=== PATIENT | male | born 1965 | race Two or more races ===

== ENCOUNTER 2019-11-06 12:18 | Inpatient (IN) | payer OTHER ==
--- NOTE | 2019-11-06 12:47 | BHS.RME ---
Substance Use & Tx History - Substance Use History Alcohol Substance amount: 5-6 fifths of vodka Frequency of use: Daily Substance route: Oral Date of Last Use: 11/06/19 (started age 13) Marijuana/Hashish Substance amount: 1 ounce Frequency of use: Daily Substance route: Smoking Date of Last Use: 11/06/19 (started age 6) Nicotine Substance amount: former stopped 20 years ago Physical/Psych/Mental Status - Behavior General Behavior: Increased activity (restlessness, agitation) Eye Contact: Normal - Cooperativeness Cooperativeness: Cooperative - Thinking Thought Processes: Tight, Logical, Goal Directed - Physical Health Problems Is patient presently having any pain?: No Does patient presently have any injuries (include location): No Does patient currently have a fever: No Is patient : No CIWA Nausea/Vomitin Muscle Tremors: 5 Anxiety: 3 Agitation: 3 Paroxysmal Sweats: 4-Forehead w/Sweat Beads Orientation: 1-Uncertain about Date Tacttile Disturbances: 3-Moderate Itch/Numb/Burn Auditory Disturbances: 0-None Visual Disturbances: 0-None Headache: 2-Mild CIWA-Ar Total Score: 24
[2019-11-06 13:25] VITALS: BMI 24.0
--- NOTE | 2019-11-06 13:28 | HP ---
CIWA Score Nausea/Vomitin Muscle Tremors: 5 Anxiety: 3 Agitation: 3 Paroxysmal Sweats: 4-Forehead w/Sweat Beads Orientation: 1-Uncertain about Date Tacttile Disturbances: 3-Moderate Itch/Numb/Burn Auditory Disturbances: 0-None Visual Disturbances: 0-None Headache: 2-Mild CIWA-Ar Total Score: 24 - Admission Criteria OASAS Guidelines: Admission for Medically Managed Detox: Requires at least one of the followin. CIWA greater than 12 2. Seizures within the past 24 hours 3. Delirium tremens within the past 24 hours 4. Hallucinations within the past 24 hours 5. Acute intervention needed for co occurring medical disorder 6. Acute intervention needed for co occurring psychiatric disorder 7. Severe withdrawal that cannot be handled at a lower level of care (continued vomiting, continued diarrhea, abnormal vital signs) requiring intravenous medication and/or fluids 8. Admitting History and Physical - Admission Chief Complaint: Pt is a 54 yo M presenting for alcohol detox; "detox from alcohol." History of Present Illness: Pt is a 54 yo M presenting for alcohol detox; "detox from alcohol." First time at [facility]. Last time at detox was 10 years ago. Pt reports possible intermittent periods of sobriety but no significant periods of time. Pt reports that certain stressful interpersonal relationships are trigger for his alcohol use. Pt has several medical comorbidities and in active withdrawal (experiencing diaphoresis, itching, and restlessness). Walks with a cane at home. PMH - asthma, T2DM, HIV (viral load undetectable, CD4 cannot recall - per pt; last month), Psoriasis, Seizures (pt reports having a "seizure" yesterday on the street), s/p CVA in 2019 (pt reports residual L sided weakness) PSH - s/p brain surgery - hematoma (s/p surgery 11/2018); orthopedic surgery L arm (when he was 17 yo) Psych - none, feeling "down and depressed" - Soc/Domiciled - Live in the [place] apt with his Legal - none - Substance Use History Alcohol Substance amount: 5-6 fifths of vodka Frequency of use: Daily Substance route: Oral Date of Last Use: 11/06/19 (started age 13) Marijuana/Hashish Substance amount: 1 ounce Frequency of use: Daily Substance route: Smoking Date of Last Use: 11/06/19 (started age 6) Nicotine Substance amount: former stopped 20 years ago History Source: Patient Limitations to Obtaining History: No Limitations Admission ROS S - HPI Exam Limitations: No Limitations - Ebola screening Have you traveled outside of the country in the last 21 days: No Have you been sick,other than usual withdrawal symptoms: No Do you have a fever: No - Review of Systems Constitutional: Chills, Diaphoresis, Weakness (residual L sided weakness s/p CVA in 2019) EENT: reports: Blurred Vision (pt reports blurry vision chronically and wears glasses (not sure if nearsighted/farsighted)), Hearing Loss (chronic gradually bilateral hearing loss x 4 years), Nose Congestion Respiratory: reports: Shortness of Breath (mild SOB - pt reports it's from his asthma; not significantly above baseline) Cardiac: reports: No Symptoms Reported GI: reports: Abd. Pain w/ defecation (intermittent pain with defecation), Blood Streaked Bowels, Diarrhea (watery diarrhea x 2 days), Nausea, Abdominal cramping Musculoskeletal: reports: Muscle Pain (diffuse muscle aches) Integumentary: reports: Rash (chronic all over extremities from psoriasis) Neuro: reports: Headache (mild), Seizure (seizure in the street), Tremors (bilateral UE, observed), Unsteady Gait (2/2 to CVA in 2019) Endocrine: reports: No Symptoms Reported Psychiatric: reports: Agitated, Anxious, Depressed Patient History - Smoking Cessation Smoking history: Former smoker Have you smoked in the past 12 months: No Initiated information on smoking cessation: No Admission Physical Exam [facility] - Vital Signs Vital Signs: Vital Signs - 24 hr 11/06/19 13:23 Temperature 97.7 F Pulse Rate 96 H Respiratory 18 Rate Blood Pressure 131/76 - Physical General Appearance: Yes: No Apparent Distress, Nourished, Appropriately Dressed, Tremorous, Irritable, Sweating, Anxious, Other (restless) HEENTM: Yes: EOMI, Hearing grossly Normal (with gradual bilateral hearing loss; able to hear appropriately during normal conversation), Normocephalic, Normal Voice, Nasal Congestion (mild) Respiratory: Yes: Lungs Clear, Normal Breath Sounds, No Respiratory Distress, No Accessory Muscle Use Neck: Yes: Supple, Trachea in good position Breast: Yes: Breast Exam Deferred Cardiology: Yes: Regular Rhythm, Regular Rate Abdominal: Yes: Normal Bowel Sounds, Non Tender, Flat, Soft Genitourinary: Yes: Other (deferred) Back: Yes: Normal Inspection Musculoskeletal: Yes: Muscle Pain (muscle aches), Other (gait unsteady after CVA in 2019; possible residual weakness of LLE) Extremities: Yes: Normal Inspection, Normal Range of Motion, Non-Tender, Tremors Neurological: Yes: Fully Oriented, Alert, Motor Strength 5/5 (except LLE - 4/5 strength on hip flexion, knee extension, plantarflexion, and dorsiflexion) Integumentary: Yes: Normal Color, Dry, Warm, Other (rash's in all extremities from psoriasis as well as excoriations from itching) - Diagnostic (1) Seizure Current Visit: Yes Status: Chronic (2) HIV (human immunodeficiency virus infection) Current Visit: Yes Status: Acute Qualifiers: HIV symptom status: asymptomatic Qualified Code(s): Z21 - Asymptomatic human immunodeficiency virus [HIV] infection status (3) Asthma Current Visit: Yes Status: Chronic Qualifiers: Asthma severity: mild Asthma persistence: intermittent Asthma complication type: uncomplicated Qualified Code(s): J45.20 - Mild intermittent asthma, uncomplicated (4) Type 2 diabetes mellitus Current Visit: Yes Status: Chronic Qualifiers: Diabetes mellitus penitentiary insulin use: without penitentiary use Diabetes mellitus complication status: without complication Qualified Code(s): E11.9 - Type 2 diabetes mellitus without complications (5) Psoriasis Current Visit: Yes Status: Chronic (6) Alcohol dependence with withdrawal, uncomplicated Current Visit: Yes Status: Acute Cleared for Admission S - Detox or Rehab [facility] Level of Care: Medically Managed Detox Regimen/Protocol: Librium Breathalyzer - Breathalyzer Breathalyzer: 0.077 Urine Drug Screen - Test Device Lot number: [id number] Expiration date: 05/15/21 - Control Is test valid?: Yes - Results Drug screen NEGATIVE: No Urine drug screen results: THC-Marijuana Inpatient Rehab Admission - Rehab Decision to Admit Inpatient rehab admission?: No
[2019-11-06] MEDS ORDERED: ONDANSETRON *ODT* 4 MG TABLET SL PRN (14:05)
[2019-11-06] MEDS ORDERED: NICOTINE POLACRILEX 2 MG GUM BUC PRN (14:05)
[2019-11-06] MEDS ORDERED: MAGNESIUM CITRATE 300 ML BOTTLE PO PRN (14:05)
[2019-11-06] MEDS ORDERED: ACETAMINOPHEN 325 MG TABLET (FP) PO PRN ×2 (14:05)
[2019-11-06] MEDS ORDERED: chlordiazePOXIDE HCL 25 MG CAPSULE PO ONE (14:05)
[2019-11-06] MEDS ORDERED: BISMUTH SUBSALICYLATE 262 MG/15 ML BTL PO PRN (14:05)
[2019-11-06] MEDS ORDERED: MENTHOL/PHENOL 1 EACH UD MM PRN (14:05)
[2019-11-06] MEDS ORDERED: IBUPROFEN 400 MG TABLET (FP) PO PRN (14:05)
[2019-11-06] MEDS ORDERED: METHOCARBAMOL 500 MG TABLET PO PRN (14:05)
[2019-11-06] MEDS ORDERED: chlordiazePOXIDE HCL 25 MG CAPSULE PO PRN (14:05)
[2019-11-06] MEDS ORDERED: MAGNESIUM HYDROX 2400MG/30ML ORAL SUSPENSION 30 ML CUP PO PRN (14:05)
[2019-11-06] MEDS ORDERED: MAG HYDROX/AL HYDROX/SIMETH 30 ML UNIT-DOSE CUP PO PRN (14:05)
[2019-11-06] MEDS ORDERED: chlordiazePOXIDE HCL 25 MG CAPSULE ONE (14:34)
[2019-11-06] MEDS ORDERED: MASKS NR ONE (16:25)
[2019-11-06 16:53] LABS: HEMATOCRIT 31.5 % (35.4-49); HEMOGLOBIN 10.7 GM/dL (11.7-16.9); MCH 35.4 pg (25.7-33.7); MCHC 33.8 g/dl (32.0-35.9); MEAN CELL VOLUME 104.8 fl (80-96); MEAN PLT VOLUME 6.9 fl (7.5-11.1); PLATELET COUNT 172 K/MM3 (134-434); RBC 3.01 M/mm3 (4.00-5.60); RDW 14.2 % (11.9-15.9); WHITE BLOOD COUNT 5.7 K/mm3 (4.0-10.0)
[2019-11-06 17:03] LABS: BILIRUBIN,TOTAL 0.4 mg/dL (0.2-1); CALCIUM 8.3 mg/dL (8.5-10.1); CREATININE 0.8 mg/dL (0.55-1.3); POTASSIUM 3.8 mmol/L (3.5-5.1); TOT PROT 11.3 g/dl (6.4-8.2)
[2019-11-06] MEDS: chlordiazePOXIDE HCL 25 MG CAPSULE PO SCH ×2 (18:19→22:46)
[2019-11-06] MEDS: hydrOXYzine PAMOATE 25 MG CAPSULE (FP) PO SCH ×2 (18:19→22:46)
[2019-11-06] MEDS: MELATONIN 5 MG TABLETS PO SCH (22:46)
[2019-11-06] MEDS: levETIRAcetam 500 MG TABLET (FP) PO SCH (22:46)
[2019-11-06] MEDS: THIAMINE HCL 100 MG TABLET (FP) PO SCH (22:46)
[2019-11-07] MEDS ORDERED: metFORMIN HCL 500 MG TABLET (FP) PO SCH (07:00)
[2019-11-07] MEDS: chlordiazePOXIDE HCL 25 MG CAPSULE PO SCH ×4 (07:08→22:57)
[2019-11-07] MEDS: hydrOXYzine PAMOATE 25 MG CAPSULE (FP) PO SCH ×5 (07:08→22:56)
[2019-11-07] MEDS: metFORMIN HCL 500 MG TABLET (FP) PO SCH (07:08)
[2019-11-07] MEDS ORDERED: TENOFOVIR ALAFENAMIDE FUMARATE 25 MG PO SCH (10:00)
[2019-11-07] MEDS ORDERED: PATIENT'S OWN MEDICATION (NON-FORMULARY) (Dolutegravir/Rilpivirine [Juluca 50-25 Mg Tablet PO SCH (10:00)
--- NOTE | 2019-11-07 10:13 | PN ---
Teaching Attending Note Name of Resident: Jamison Bradshaw ATTENDING PHYSICIAN STATEMENT I saw and evaluated the patient. I reviewed the resident's note and discussed the case with the resident. I agree with the resident's findings and plan as documented. SUBJECTIVE: OBJECTIVE: ASSESSMENT AND PLAN: 1. Alcohol use disorder, withdrawal Plan 1. Librium detox protocol
[2019-11-07] MEDS: RILPIVIRINE HCL 25 MG TABLET PO SCH (10:29)
[2019-11-07] MEDS: PRENATAL VITAMINS W/ FOLIC ACID TABLET (FP) PO SCH (10:29)
[2019-11-07] MEDS: levETIRAcetam 500 MG TABLET (FP) PO SCH ×2 (10:29→22:56)
[2019-11-07] MEDS: DOLUTEGRAVIR SODIUM 50 MG TABLET (NON-FORMULARY) PO SCH (10:30)
--- NOTE | 2019-11-07 10:58 | EKG ---
Test Reason : Blood Pressure : / mmHG Vent. Rate : 084 BPM Atrial Rate : 084 BPM P-R Int : 126 ms QRS Dur : 086 ms QT Int : 390 ms P-R-T Axes : 071 018 060 degrees QTc Int : 460 ms NORMAL SINUS RHYTHM NORMAL ECG NO PREVIOUS ECGS AVAILABLE Confirmed by MD Fallon, Mateo ([id number]) on 11/07/2019 10:57:57 AM Referred By: Confirmed By:Mateo Lehman MD
--- NOTE | 2019-11-07 11:46 | PN ---
[facility] CIWA - CIWA Score Nausea/Vomitin-Mild Nausea/No Vomiting Muscle Tremors: 2 Anxiety: 2 Agitation: 2 Paroxysmal Sweats: No Perspiration Orientation: 0-Oriented Tacttile Disturbances: 1-Very Mild Itch/Numbness Auditory Disturbances: 0-None Visual Disturbances: 0-None Headache: 1-Very Mild CIWA-Ar Total Score: 9 S Progress Note (SOAP) Subjective: alert,irritable,anxious,interrupted sleep,aching pain,aching pain,nausea Objective: 11/07/19 16:34 Vital Signs Temperature 97.0 F L 11/07/19 09:19 Pulse Rate 82 11/07/19 09:19 Respiratory Rate 16 11/07/19 09:19 Blood Pressure 114/68 11/07/19 09:19 O2 Sat by Pulse Oximetry (%) 96 11/07/19 09:19 11/07/19 16:34 Laboratory Last Values WBC 5.7 K/mm3 (4.0-10.0) 11/06/19 14:00 RBC 3.01 M/mm3 (4.00-5.60) L 11/06/19 14:00 Hgb 10.7 GM/dL (11.7-16.9) L 11/06/19 14:00 Hct 31.5 % (35.4-49) L 11/06/19 14:00 MCV 104.8 fl (80-96) H 11/06/19 14:00 MCH 35.4 pg (25.7-33.7) H 11/06/19 14:00 MCHC 33.8 g/dl (32.0-35.9) 11/06/19 14:00 RDW 14.2 % (11.9-15.9) 11/06/19 14:00 Plt Count 172 K/MM3 (134-434) 11/06/19 14:00 MPV 6.9 fl (7.5-11.1) L 11/06/19 14:00 Sodium 136 mmol/L (136-145) 11/06/19 14:00 Potassium 3.8 mmol/L (3.5-5.1) 11/06/19 14:00 Chloride 106 mmol/L (98-107) 11/06/19 14:00 Carbon Dioxide 27 mmol/L (21-32) 11/06/19 14:00 Anion Gap 4 MMOL/L (8-16) L 11/06/19 14:00 BUN 11.0 mg/dL (7-18) 11/06/19 14:00 Creatinine 0.8 mg/dL (0.55-1.3) 11/06/19 14:00 Est GFR (CKD-EPI)AfAm 116.56 11/06/19 14:00 Est GFR (CKD-EPI)NonAf 100.57 11/06/19 14:00 POC Glucometer 123 UNITS (80-120) 11/07/19 16:26 Random Glucose 87 mg/dL (74-106) 11/06/19 14:00 Calcium 8.3 mg/dL (8.5-10.1) L 11/06/19 14:00 Total Bilirubin 0.4 mg/dL (0.2-1) 11/06/19 14:00 AST 46 U/L (15-37) H 11/06/19 14:00 ALT 17 U/L (13-61) 11/06/19 14:00 Alkaline Phosphatase 153 U/L (45-117) H 11/06/19 14:00 Total Protein 11.3 g/dl (6.4-8.2) H 11/06/19 14:00 Albumin 3.0 g/dl (3.4-5.0) L 11/06/19 14:00 Syphilis Serology Non-reactive (NONREACTIVE) 11/06/19 14:00 Assessment: 11/07/19 16:35 withdrawal symptom Plan: continue detox librium regimen
[2019-11-07] MEDS ORDERED: FLU VACCINE (FLULAVAL) PF 60 MCG/0.5 ML SYRINGE 2020-2021 IM ONE (12:00)
[2019-11-07] MEDS ORDERED: BENZOCAINE 28 GM HEMORRHOIDAL OINTMENT PR PRN (17:38)
--- NOTE | 2019-11-07 17:38 | PN ---
S Progress Note Note: Pt states he has pain in his rectum and blood when he strains to go to the bathroom. Would like something for pain. Pt states he has an appointment on Tuesday to see PCP for evaluation of this- rectal pain with possible colonoscopy. Possible hemorrhoids- symptomatic relief needs evaluation- f/u PCP
--- NOTE | 2019-11-07 18:04 | CONSULT ---
[facility] Psychiatric Consult - Data Date of interview: 11/07/19 Admission source: [facility] Identifying data: First visit to [facility] and admission to [address] [place] [address] for this 54 y/o AA male self-referred for detoxification treatment. RASHID issue ; alcohol. Patient is , father of 17, domiciled, unemployed and supported on SSI/SSD benefits. Substance Abuse History: Discussed with the patient. RASHID profile as follows : Alcohol. Substance amount: 5-6 fifths of vodka. Frequency of use: Daily. Substance route: Oral. Date of Last Use: 11/06/19 (started age 13). Marijuana/Hashish. Substance amount: 1 ounce. Frequency of use: Daily. Substance route: Smoking. Date of Last Use: 11/06/19 (started age 6). Nicotine. Substance amount: former stopped 20 years ago. History Source: Patient. Limitations to Obtaining History: No Limitations. Medical History: Medical profile is remarkable for bronchial asthma, diabetes mellitus (type 2), HIV infection since 1977 (on ART medications), psoriasis, seizure disorder, antecedent of CVA with residual left-sided weakness (walks with /without cane), history of brain surgery (hematoma in 2019) and a distant background of orthosurgery for injury to left arm (age 17). Psychiatric History: Patient denies history of psychiatric hospitalizations, OPD care or suicide attempts. Physical/Sexual Abuse/Trauma History: Patient denies history of abuse. Additional Comment: Urine drug screen results: THC-Marijuana. Noted. Mental Status Exam - Mental Status Exam Alert and Oriented to: Time, Place, Person Cognitive Function: Good Patient Appearance: Unkempt, Disheveled Mood: Nervous, Withdrawn Affect: Mood Congruent, Constricted Patient Behavior: Fatigued, Appropriate, Cooperative Speech Pattern: Clear, Appropriate Voice Loudness: Normal Thought Process: Intact, Goal Oriented Thought Disorder: Not Present Hallucinations: Denies Suicidal Ideation: Denies Homicidal Ideation: Denies Insight/Judgement: Poor Sleep: Well Appetite: Fair Gait/Station: Other (slow gait) Psychiatric Findings - Problem List ([place] 1, 2,3) (1) Alcohol dependence with withdrawal, uncomplicated Current Visit: Yes Status: Acute - Initial Treatment Plan Initial Treatment Plan: Psychoeducation. Sleep hygiene. Detoxification in progress. Observation.
[2019-11-07] MEDS: THIAMINE HCL 100 MG TABLET (FP) PO SCH (22:56)
[2019-11-07] MEDS: MELATONIN 5 MG TABLETS PO SCH (22:56)
[2019-11-08] MEDS: metFORMIN HCL 500 MG TABLET (FP) PO SCH (06:39)
[2019-11-08] MEDS: chlordiazePOXIDE HCL 25 MG CAPSULE PO SCH ×2 (06:39→10:14)
[2019-11-08] MEDS: hydrOXYzine PAMOATE 25 MG CAPSULE (FP) PO SCH ×2 (06:40→10:14)
[2019-11-08 09:54] VITALS: BP 124/65; PULSE 83; TEMP 97.8
[2019-11-08] MEDS ORDERED: HYDROCORTISONE 2.5% TOPICAL CREAM 30 GM TUBE PR SCH (10:00)
[2019-11-08] MEDS: levETIRAcetam 500 MG TABLET (FP) PO SCH (10:10)
[2019-11-08] MEDS: RILPIVIRINE HCL 25 MG TABLET PO SCH (10:11)
[2019-11-08] MEDS: PRENATAL VITAMINS W/ FOLIC ACID TABLET (FP) PO SCH (10:12)
[2019-11-08] MEDS: DOLUTEGRAVIR SODIUM 50 MG TABLET (NON-FORMULARY) PO SCH (10:14)
--- NOTE | 2019-11-08 10:19 | PN ---
[facility] CIWA - CIWA Score Nausea/Vomitin-No Nausea/No Vomiting Muscle Tremors: None Anxiety: 1-Mildly Anxious Agitation: 0-Normal Activity Paroxysmal Sweats: No Perspiration Orientation: 0-Oriented Tacttile Disturbances: 0-None Auditory Disturbances: 0-None Visual Disturbances: 0-None Headache: 0-None Present CIWA-Ar Total Score: 1 S Progress Note (SOAP) Subjective: alert,no complaint Objective: 11/08/19 16:14 Vital Signs Temperature 97.8 F 11/08/19 08:52 Pulse Rate 83 11/08/19 08:52 Respiratory Rate 18 11/08/19 08:52 Blood Pressure 124/65 11/08/19 08:52 O2 Sat by Pulse Oximetry (%) 96 11/08/19 06:22 11/08/19 16:14 Laboratory Last Values WBC 5.7 K/mm3 (4.0-10.0) 11/06/19 14:00 RBC 3.01 M/mm3 (4.00-5.60) L 11/06/19 14:00 Hgb 10.7 GM/dL (11.7-16.9) L 11/06/19 14:00 Hct 31.5 % (35.4-49) L 11/06/19 14:00 MCV 104.8 fl (80-96) H 11/06/19 14:00 MCH 35.4 pg (25.7-33.7) H 11/06/19 14:00 MCHC 33.8 g/dl (32.0-35.9) 11/06/19 14:00 RDW 14.2 % (11.9-15.9) 11/06/19 14:00 Plt Count 172 K/MM3 (134-434) 11/06/19 14:00 MPV 6.9 fl (7.5-11.1) L 11/06/19 14:00 Sodium 136 mmol/L (136-145) 11/06/19 14:00 Potassium 3.8 mmol/L (3.5-5.1) 11/06/19 14:00 Chloride 106 mmol/L (98-107) 11/06/19 14:00 Carbon Dioxide 27 mmol/L (21-32) 11/06/19 14:00 Anion Gap 4 MMOL/L (8-16) L 11/06/19 14:00 BUN 11.0 mg/dL (7-18) 11/06/19 14:00 Creatinine 0.8 mg/dL (0.55-1.3) 11/06/19 14:00 Est GFR (CKD-EPI)AfAm 116.56 11/06/19 14:00 Est GFR (CKD-EPI)NonAf 100.57 11/06/19 14:00 POC Glucometer 124 UNITS (80-120) 11/08/19 06:48 Random Glucose 87 mg/dL (74-106) 11/06/19 14:00 Calcium 8.3 mg/dL (8.5-10.1) L 11/06/19 14:00 Total Bilirubin 0.4 mg/dL (0.2-1) 11/06/19 14:00 AST 46 U/L (15-37) H 11/06/19 14:00 ALT 17 U/L (13-61) 11/06/19 14:00 Alkaline Phosphatase 153 U/L (45-117) H 11/06/19 14:00 Total Protein 11.3 g/dl (6.4-8.2) H 11/06/19 14:00 Albumin 3.0 g/dl (3.4-5.0) L 11/06/19 14:00 Syphilis Serology Non-reactive (NONREACTIVE) 11/06/19 14:00 COVID-19 ([facility]) Not detected (Not Detected) 11/06/19 15:15 Assessment: 11/08/19 16:14 no withdrawal symptom Plan: stable for discharge today,follow up with medical provider on Tuesday11/12/19 as arrangement,after care follow up as arrangement by counselor
--- NOTE | 2019-11-08 10:19 | DS ---
[facility] Detox Discharge Summary Admission Date: 11/06/19 Discharge Date: 11/08/19 - History Additional Comments: alert,oriented x 3 ambulation on the unit with cane lung clear on auscultation bilaterally abdomen soft,no pain,no tenderness no edema of legs no withdrawal symptom stable for discharge today, follow up with after care program as arrangement and medical provider on Tuesday11/12/19 total time of discharge spendinr 35 minutes lef the unit in stable condition has all medications Pertinent Past History: hiv asthma type dm psoriasis seizure - Physical Exam Results Vital Signs: Vital Signs Temperature 97.8 F 11/08/19 08:52 Pulse Rate 83 11/08/19 08:52 Respiratory Rate 18 11/08/19 08:52 Blood Pressure 124/65 11/08/19 08:52 O2 Sat by Pulse Oximetry (%) 96 11/08/19 06:22 Pertinent Admission Physical Exam Findings: withdrawal signs and symptom Laboratory Last Values WBC 5.7 K/mm3 (4.0-10.0) 11/06/19 14:00 RBC 3.01 M/mm3 (4.00-5.60) L 11/06/19 14:00 Hgb 10.7 GM/dL (11.7-16.9) L 11/06/19 14:00 Hct 31.5 % (35.4-49) L 11/06/19 14:00 MCV 104.8 fl (80-96) H 11/06/19 14:00 MCH 35.4 pg (25.7-33.7) H 11/06/19 14:00 MCHC 33.8 g/dl (32.0-35.9) 11/06/19 14:00 RDW 14.2 % (11.9-15.9) 11/06/19 14:00 Plt Count 172 K/MM3 (134-434) 11/06/19 14:00 MPV 6.9 fl (7.5-11.1) L 11/06/19 14:00 Sodium 136 mmol/L (136-145) 11/06/19 14:00 Potassium 3.8 mmol/L (3.5-5.1) 11/06/19 14:00 Chloride 106 mmol/L (98-107) 11/06/19 14:00 Carbon Dioxide 27 mmol/L (21-32) 11/06/19 14:00 Anion Gap 4 MMOL/L (8-16) L 11/06/19 14:00 BUN 11.0 mg/dL (7-18) 11/06/19 14:00 Creatinine 0.8 mg/dL (0.55-1.3) 11/06/19 14:00 Est GFR (CKD-EPI)AfAm 116.56 11/06/19 14:00 Est GFR (CKD-EPI)NonAf 100.57 11/06/19 14:00 POC Glucometer 124 UNITS (80-120) 11/08/19 06:48 Random Glucose 87 mg/dL (74-106) 11/06/19 14:00 Calcium 8.3 mg/dL (8.5-10.1) L 11/06/19 14:00 Total Bilirubin 0.4 mg/dL (0.2-1) 11/06/19 14:00 AST 46 U/L (15-37) H 11/06/19 14:00 ALT 17 U/L (13-61) 11/06/19 14:00 Alkaline Phosphatase 153 U/L (45-117) H 11/06/19 14:00 Total Protein 11.3 g/dl (6.4-8.2) H 11/06/19 14:00 Albumin 3.0 g/dl (3.4-5.0) L 11/06/19 14:00 Syphilis Serology Non-reactive (NONREACTIVE) 11/06/19 14:00 COVID-19 ([place]) Not detected (Not Detected) 11/06/19 15:15 Vital Signs Temperature 97.8 F 11/08/19 08:52 Pulse Rate 83 11/08/19 08:52 Respiratory Rate 18 11/08/19 08:52 Blood Pressure 124/65 11/08/19 08:52 O2 Sat by Pulse Oximetry (%) 96 11/08/19 06:22 - Treatment Hospital Course: Detox Protocol Followed, Detoxed Safely, Responded well, Discharged Condition Good Patient has Accepted a Rehab Referral to: [facility] - Medication Discharge Medications: Ambulatory Orders Dolutegravir/Rilpivirine [Juluca 50-25 mg Tablet] 1 each PO DAILY 11/06/19 Tenofovir Alafenamide Fumarate [Vemlidy] 25 mg PO DAILY 11/06/19 levETIRAcetam [Keppra -] 500 mg PO BID 11/06/19 metFORMIN HCL [Metformin HCl] 500 mg PO DAILY 11/06/19 - Diagnosis (1) Alcohol dependence with withdrawal, uncomplicated Status: Acute (2) HIV (human immunodeficiency virus infection) Status: Acute Qualifiers: HIV symptom status: asymptomatic Qualified Code(s): Z21 - Asymptomatic human immunodeficiency virus [HIV] infection status (3) Asthma Status: Chronic Qualifiers: Asthma severity: mild Asthma persistence: intermittent Asthma complication type: uncomplicated Qualified Code(s): J45.20 - Mild intermittent asthma, uncomplicated (4) Psoriasis Status: Chronic (5) Seizure Status: Chronic (6) Type 2 diabetes mellitus Status: Chronic Qualifiers: Diabetes mellitus halfway insulin use: without halfway use Diabetes mellitus complication status: without complication Qualified Code(s): E11.9 - Type 2 diabetes mellitus without complications
[2019-11-09] MEDS ORDERED: chlordiazePOXIDE HCL 10 MG CAPSULE PO PRN
[2019-11-09] MEDS ORDERED: chlordiazePOXIDE HCL 10 MG CAPSULE PO SCH (05:00)
[2019-11-10] MEDS ORDERED: chlordiazePOXIDE HCL 10 MG CAPSULE PO SCH (05:00)
[2019-11-11] MEDS ORDERED: chlordiazePOXIDE HCL 10 MG CAPSULE PO ONE (05:00)
== END 2019-11-08 11:27 | disposition home or self-care (01) | DRG 775 ==
LOC: YASAS 12:18 → Y3N 14:05
PROVIDERS: ADMIT Allergy & Immunology; ATTEND Allergy & Immunology
PROC: HZ2ZZZZ Detoxification Services for Substance Abuse Treatment (ICD-10-PCS; principal; 2019-11-06)
PROC: HZ2ZZZZ Detoxification Services for Substance Abuse Treatment (ICD-10-PCS; 2019-11-06)
DX: F10.230 Alcohol dependence with withdrawal, uncomplicated (principal); F12.20 Cannabis dependence, uncomplicated; F17.211 Nicotine dependence, cigarettes, in remission; Z21 Asymptomatic human immunodeficiency virus [HIV] infection status; E11.9 Type 2 diabetes mellitus without complications; Z79.84 Long term (current) use of oral hypoglycemic drugs; G40.909 Epilepsy, unspecified, not intractable, without status epilepticus; J45.20 Mild intermittent asthma, uncomplicated; L40.9 Psoriasis, unspecified; H53.8 Other visual disturbances; H91.93 Unspecified hearing loss, bilateral; K62.89 Other specified diseases of anus and rectum; I69.854 Hemiplegia and hemiparesis following other cerebrovascular disease affecting left non-dominant side; Z87.820 Personal history of traumatic brain injury; Z87.828 Personal history of other (healed) physical injury and trauma; Z98.890 Other specified postprocedural states; R26.89 Other abnormalities of gait and mobility; Z99.89 Dependence on other enabling machines and devices
CPT/HCPCS: 36415; 80053; 82962; 85027; 86780; 93005; 93010; U0003